=== PATIENT | female | born 1980 ===

== ENCOUNTER 2021-06-27 08:01 | Inpatient (IN) | payer OTHER ==
[~2021-06-27] VITALS: Ht 170.2 cm; Wt 82.3 kg
[2021-06-27] VITALS (8 sets, daily range): BP systolic 102–129; BP diastolic 54–78; PULSE 63–98; TEMP 97.7–99.3
[2021-06-27] MEDS ORDERED: ZYRTEC 10MG10 MG PO (08:26)
[2021-06-27] MEDS ORDERED: SINGULAIR 110 MG/TAB PO (08:27)
--- NOTE | 2021-06-27 08:44 | NUR ---
Scopolamine patch placed behind left ear. Educated patient about medication.
--- NOTE | 2021-06-27 12:31 | NUR ---
1210 PATIENT ARRIVES TO FLOOR IN HOSPITAL BED, REPORT FROM KENNA [place]. PT ALERT TO RESPOND TO QUESTIONS, BUT APPEARS DROWSY. PT STATES SHE IS COLD. WARM BLANKETS APPLIED. VSS. PT ON 2L NC AT 100% SPO2. 3 ABD INCISIONS COVERED WITH BANDAIDS, CDI. GONZALES IN PLACE DRAINING CLEAR URINE. 1225 FAMILY BROUGHT TO PATIENTS ROOM AT THIS TIME. PATIENT STATING HAVING PAIN, BUT IS TIRED. PT WANTS TO WAIT ON PAIN MEDS. PATIENT AND FAMILY UPDATED WITH PLAN OF CARE. CALL LIGHT WITHIN REACH. PT RESTING AT THIS TIME.
--- NOTE | 2021-06-27 14:50 | NUR ---
1400 PATIENT ASKING FOR PAIN MEDICATIONS AT THIS TIME. EDUCATION PROVIDED FOR PERCOCET. PATIENT AGREES TO TAKE 1 PERCOCET. PT IS TOLERATING WATER AND [employer] CR[employer]ERS NOW. PATIENT SITTING UP TALKING WITH FAMILY.
[2021-06-28 01:15] VITALS: BP 104/47; PULSE 83; TEMP 97.4
[2021-06-28 05:00] VITALS: BP 100/52; PULSE 71; TEMP 98.8
[2021-06-28 07:45] VITALS: BP 99/56; PULSE 78; TEMP 98.3
[2021-06-28] MEDS ORDERED: IBU800 M1 PO (08:26)
[2021-06-28] MEDS ORDERED: PERCOCET 325 MG1 TA2 PO (08:26)
--- NOTE | 2021-06-28 08:40 | NUR ---
ROLES AT BEDSIDE DISCUSSING DISCHARGE INSTRUCTIONS IN DEPTH, WELL FOLLOW UP APPOINTMENT AND POST-OP RESTRICTIONS. VITAL SIGNS STABLE, INCISION SITES CDI, BANDAGES IN PLACE. DENIES NEEDS OR CONCERNS AT THIS TIME.
--- NOTE | 2021-06-28 09:51 | NUR ---
Initial visit attempt; Physician with patient, [place] [employer] left card informing the patient of the availability of Spiritual Care at our hospital.
[2021-06-28 10:00] VITALS: BP 111/74; PULSE 68; TEMP 98.4
--- NOTE | 2021-06-28 10:10 | NUR ---
PT ESCORTED FROM UNIT VIA WHEELCHAIR WITH . STABLE CONDITION. ALL DC PAPERWORK AND FOLLOW UP APPOINTMENTS REVIEWED. PT DENIES FURTHER QUESTIONS OR CONCERNS.
== END 2021-06-28 10:10 | disposition home or self-care (01) | DRG 743 ==
LOC: SDCO 08:01 → OB 10:47
PROVIDERS: ADMIT Obstetrics & Gynecology
PROC: 0UT10ZZ Resection of Left Ovary, Open Approach (ICD-10-PCS; 2021-06-27)
PROC: 0UT9FZZ Resection of Uterus, Via Natural or Artificial Opening With Percutaneous Endoscopic Assistance (ICD-10-PCS; principal; 2021-06-27 10:00)
PROC: 0UT5FZZ Resection of Right Fallopian Tube, Via Natural or Artificial Opening With Percutaneous Endoscopic Assistance (ICD-10-PCS; 2021-06-27 10:00)
PROC: 0UT60ZZ Resection of Left Fallopian Tube, Open Approach (ICD-10-PCS; 2021-06-27 10:00)
DX: N92.0 Excessive and frequent menstruation with regular cycle (principal); N83.202 Unspecified ovarian cyst, left side; D64.9 Anemia, unspecified
CPT/HCPCS: A4314; J0690; J1100; J1885; J2405; J2704; J2710; J2765; J3010; J7120